=== PATIENT | female | born 1955 | race Caucasian/White ===

== ENCOUNTER 2020-09-04 13:26 | Observation (INO) ==
[2020-09-04] MEDS ORDERED: Isovue-370 500 ML BOTTLE IVP ONE (14:42)
[2020-09-04] MEDS ORDERED: Naloxone 0.4 MG/ML INJ IVP PRN (18:18)
[2020-09-04] MEDS ORDERED: Perflutren Lipid Microsphere 1.3 ML in 0.9 % Sodium Chloride 8.7 ML IVP PRN (18:22)
[2020-09-05 06:29] VITALS: BP 155/88
[2020-09-05] MEDS ORDERED: Regadenoson 0.4 MG/5 ML SYRINGE IVP ONE (06:42)
== END 2020-09-05 12:01 | disposition home or self-care (01) ==
LOC: EMEROOARM 13:26 → 3BNU 13:26 → SUATTDRO 17:47 → 3BNU 18:14
PROVIDERS: ADMIT Family Medicine; ATTEND Nurse Practitioner